=== PATIENT | female | born 1940 | race Caucasian/White ===

== ENCOUNTER 2020-05-14 15:42 | Inpatient (IN) | payer OTHER ==
[~2020-05-14] VITALS: Ht 167.6 cm; Wt 113.4 kg
[2020-05-14 17:20] LABS: BASOPHIL % 0.6 % (0.2-1.3); PLATELET COUNT 315 x10^3mcL (179-408); RED CELL DISTRIBUTION WIDTH 13.4 % (12.3-17.7)
[2020-05-14 17:29] LABS: CALCIUM 8.7 mg/dL (8.5-10.1); CARBON DIOXIDE 32.3 mmol/L (21-32); CHLORIDE SERUM 103 mmol/L (98-107); CREATININE SERUM 0.8 mg/dL (0.6-1.0); GLUCOSE SERUM 104 mg/dL (74-106); POTASSIUM SERUM 4.2 mmol/L (3.5-5.1); SODIUM SERUM 138 mmol/L (136-145)
[2020-05-14 17:38] LABS: ALBUMIN 3.2 g/dL (3.4-5.0); ALKALINE PHOSPHATASE 116 U/L (46-116); ALT/SGPT 20 U/L (14-59); AST/SGOT 15 U/L (15-37); BILIRUBIN TOTAL 0.8 mg/dL (0.20-1.00); TOTAL PROTEIN, SERUM 7.2 g/dL (6.4-8.2)
[2020-05-14] MEDS ORDERED: LEVO-T75 MCG PO (18:44)
[2020-05-14] MEDS ORDERED: POTASSIUM CHLOR8 MEQ PO (18:44)
[2020-05-14] MEDS ORDERED: MEMANTINE HCL10 MG PO (18:45)
[2020-05-14] MEDS ORDERED: LASIX20 MG PO (18:45)
[2020-05-14 22:04] VITALS: BP 140/85
[2020-05-15 05:40] VITALS: BP 130/85
[2020-05-15 07:18] LABS: BASOPHIL % 0.8 % (0.2-1.3); PLATELET COUNT 317 x10^3mcL (179-408); RED CELL DISTRIBUTION WIDTH 13.1 % (12.3-17.7)
[2020-05-15 07:49] LABS: CALCIUM 8.6 mg/dL (8.5-10.1); CHLORIDE SERUM 104 mmol/L (98-107); CREATININE SERUM 0.8 mg/dL (0.6-1.0); GLUCOSE SERUM 87 mg/dL (74-106); MAGNESIUM 2.1 mg/dL (1.8-2.4); PHOSPHOROUS 3.6 mg/dL (2.5-4.9); POTASSIUM SERUM 3.5 mmol/L (3.5-5.1); SODIUM SERUM 142 mmol/L (136-145)
[2020-05-15 09:04] VITALS: BP 113/98
[2020-05-15 12:01] VITALS: BP 140/56
[2020-05-15 18:11] VITALS: BP 118/76
[2020-05-15 21:06] VITALS: Ht 167.6 cm; Wt 113.4 kg
[2020-05-15 21:14] VITALS: BP 103/74
[2020-05-16 05:40] VITALS: BP 103/64
[2020-05-16 07:36] LABS: BASOPHIL % 0.8 % (0.2-1.3); PLATELET COUNT 296 x10^3mcL (179-408); RED CELL DISTRIBUTION WIDTH 12.9 % (12.3-17.7)
[2020-05-16 07:55] LABS: CALCIUM 8.3 mg/dL (8.5-10.1); CARBON DIOXIDE 28.4 mmol/L (21-32); CHLORIDE SERUM 104 mmol/L (98-107); CREATININE SERUM 0.9 mg/dL (0.6-1.0); GLUCOSE SERUM 85 mg/dL (74-106); PHOSPHOROUS 3.9 mg/dL (2.5-4.9); POTASSIUM SERUM 3.4 mmol/L (3.5-5.1); SODIUM SERUM 140 mmol/L (136-145)
[2020-05-16 08:40] LABS: rbc morphology (normal/abnorm) NORMAL (NORMAL)
[2020-05-16 08:43] VITALS: BP 127/80
[2020-05-16 12:23] VITALS: BP 100/74
[2020-05-16 17:47] VITALS: BP 115/78
[2020-05-16 20:54] VITALS: BP 120/78
[2020-05-17 05:11] VITALS: BP 114/73
[2020-05-17 05:40] LABS: BASOPHIL % 0.9 % (0.2-1.3); PLATELET COUNT 317 x10^3mcL (179-408); RED CELL DISTRIBUTION WIDTH 13.4 % (12.3-17.7)
[2020-05-17 05:58] LABS: CARBON DIOXIDE 28.2 mmol/L (21-32); CHLORIDE SERUM 105 mmol/L (98-107); CREATININE SERUM 1.1 mg/dL (0.6-1.0); GLUCOSE SERUM 98 mg/dL (74-106); POTASSIUM SERUM 3.8 mmol/L (3.5-5.1); SODIUM SERUM 138 mmol/L (136-145)
[2020-05-17 08:39] VITALS: BP 120/71
[2020-05-17 10:35] LABS: rbc morphology (normal/abnorm) NORMAL (NORMAL)
[2020-05-17 12:30] VITALS: BP 99/65
[2020-05-17 15:01] VITALS: BP 99/65
[2020-05-17 16:15] VITALS: BP 108/72
== END 2020-05-17 19:00 | DRG 563 ==
LOC: ED 15:42 → MU 18:40
PROVIDERS: Emergency Medicine; ADMIT Internal Medicine; ATTEND Internal Medicine
DX: S93.401A Sprain of unspecified ligament of right ankle, initial encounter (principal); E44.1 Mild protein-calorie malnutrition; F03.90 Unspecified dementia, unspecified severity, without behavioral disturbance, psychotic disturbance, mood disturbance, and anxiety; E03.9 Hypothyroidism, unspecified; I50.9 Heart failure, unspecified; M19.90 Unspecified osteoarthritis, unspecified site; Z20.822 Contact with and (suspected) exposure to COVID-19; J44.9 Chronic obstructive pulmonary disease, unspecified; Z79.899 Other long term (current) drug therapy; Y92.89 Other specified places as the place of occurrence of the external cause; Z68.30 Body mass index [BMI] 30.0-30.9, adult
CPT/HCPCS: 97116-GP; 97530-GP; G0378; U0003